=== PATIENT | female | born 1955 | race Caucasian/White ===

== ENCOUNTER 2017-06-26 10:29 | Outpatient (CLI) | payer MEDICAID ==
--- NOTE | 2017-06-28 14:16 | Mammography Report ---
DIGITAL BILATERAL SCREENING MAMMOGRAM: 06/26/2017 COMPARISON: Mammogram 02/16/2015. INDICATION: Screening. TECHNIQUE: Bilateral CC and MLO breast views. FINDINGS: The breast parenchyma is extremely dense, which may limit the sensitivity of mammography. No dominant mass, architectural distortion, or concerning cluster of microcalcifications is seen. There are postoperative changes of the left breast. IMPRESSION: 1. BI-RADS CATEGORY 2-BENIGN FINDINGS. 2. RECOMMEND ANNUAL SCREENING MAMMOGRAM. STANDARD QUALIFYING STATEMENTS: 1. This examination was reviewed with the aid of Computer-Aided Detection (CAD) . 2. A negative or benign imaging report should not delay biopsy if clinically suspicious findings are present. Consider surgical consultation if warranted. More than 5 % of cancers are not identified by imaging. 3. Dense breasts may obscure an underlying neoplasm. TD: 06/28/2017 14:16 ROMAN
== END 2017-06-26 10:30 | disposition home or self-care (01) ==
LOC: DI.N 10:29
PROVIDERS: ATTEND Internal Medicine
DX: Z12.39 Encounter for other screening for malignant neoplasm of breast (principal)
CPT/HCPCS: 77067

== ENCOUNTER 2018-06-11 08:00 | Outpatient (CLI) | payer MEDICAID, OTHER ==
[2018-06-11 19:15] LABS: BASOPHILS % (AUTO) 1.2 %; EOSINOPHILS % (AUTO) 8.9 %; HGB - HEMOGLOBIN 13.6 g/dL (12.0-16.0); MEAN CORPUSCULAR HEMOGLOBIN 34.7 pg (27.0-31.0); MEAN CORPUSCULAR HGB CONC 33.2 g/dL (32.0-36.0); MEAN CORPUSCULAR VOLUME 104.5 fL (81.0-99.0); MEAN PLATELET VOLUME 8.4 fL (7.9-10.8); MONOCYTES % (AUTO) 13.3 %; NEUTROPHILS % (AUTO) 50.6 %; PLT - PLATELET COUNT 248 10^3/uL (130-450); RED BLOOD COUNT 3.91 10^6/uL (4.20-5.40); RED CELL DISTRIBUTION WIDTH 12.4 % (12.0-15.0); WHITE BLOOD COUNT 2.7 x10^3/uL (4.8-10.8)
[2018-06-11 19:22] LABS: ABNORMAL LYMPHS % (MANUAL) 0 %
[2018-06-11 19:42] LABS: BAND NEUTROPHILS % (MANUAL) 1 %; DIFFERENTIAL COMMENT MANUAL DIFFERENTIAL; EOSINOPHILS # (MANUAL) 0.1 10^3/uL (0-0.7); LYMPHOCYTES # (MANUAL) 0.8 10^3/uL (1.5-3.5); LYMPHOCYTES % (MANUAL) 29 %; MONOCYTES # (MANUAL) 0.4 10^3/uL (0.0-1.0); NEUTROPHILS # (MANUAL) 1.4 10^3/uL (1.5-6.6); NEUTROPHILS % (MANUAL) 51 %; PLATELET ESTIMATE, MANUAL NORMAL (130-450,000) (NORMAL); PLATELET MORPHOLOGY NORMAL APPEARANCE (NORMAL); RBC MORPHOLOGY (MULTIPLE) 1+ MACROCYTOSIS (NORMAL)
[2018-06-11 19:44] LABS: ALBUMIN 4.5 g/dL (3.2-5.5); ALBUMIN/GLOBULIN RATIO 1.6 (1.0-2.2); BILIRUBIN,TOTAL 0.6 mg/dL (0.2-1.0); CALCIUM 8.9 mg/dL (8.5-10.3); CREATININE 0.3 mg/dL (0.4-1.0); TOTAL PROTEIN 7.4 g/dL (6.7-8.2)
== END 2018-06-11 23:59 | disposition home or self-care (01) ==
LOC: LAB.N 08:00
PROVIDERS: ATTEND Internal Medicine
DX: M35.9 Systemic involvement of connective tissue, unspecified (principal); I73.00 Raynaud's syndrome without gangrene; E61.1 Iron deficiency
CPT/HCPCS: 36415; 80053; 82550; 83540; 84466; 85025

== ENCOUNTER 2018-07-02 08:00 | Outpatient (CLI) | payer MEDICAID | END 2018-07-02 23:59 | disposition home or self-care (01) | LOC: LAB.R 08:00 | PROVIDERS: ATTEND Internal Medicine | DX: Z12.11 Encounter for screening for malignant neoplasm of colon (principal) | CPT/HCPCS: 82274 ==

== ENCOUNTER 2018-09-10 09:59 | Outpatient (CLI) | payer MEDICARE ==
--- NOTE | 2018-09-10 15:13 | Mammography Report ---
Reason: SCREENING FOR MALIGNANT NEOPLASM OF BREAST Procedure Date: 09/10/2018 Accession Number: [id number] / [id number] Procedure: MGN - Screening Mammo Dig Bilat CPT Code: FULL RESULT: EXAM: Screening Mammo Dig Bilat DATE: 09/10/2018 10:26 AM CLINICAL HISTORY: Routine screening. Nulliparous patient. TECHNIQUE: (B) - Bilateral CC and MLO views were obtained. COMPARISON: 06/26/2017, 02/16/2015, 04/09/2013 and 04/03/2012 PARENCHYMAL PATTERN: (VD) - The breasts demonstrate extremely dense parenchyma bilaterally, limiting the sensitivity of mammography. FINDINGS: No significant interval change. There are no suspicious masses, calcifications, or areas of distortion. IMPRESSION: Negative examination. BI-RADS category 1. RECOMMENDATION: (ANNUAL) - Recommend routine annual screening mammography. BI-RADS CATEGORY: (1) - Negative. STANDARD QUALIFYING STATEMENTS: 1. This examination was not reviewed with the aid of Computer-Aided Detection (CAD). 2. A negative or benign imaging report should not preclude biopsy if clinically suspicious findings are present. 3. Dense breasts may obscure an underlying neoplasm. 4. This examination was reviewed without the aid of 3D breast imaging (tomosynthesis).
== END 2018-09-10 10:00 | disposition home or self-care (01) ==
LOC: DI.N 09:59
PROVIDERS: ATTEND Internal Medicine
DX: Z12.31 Encounter for screening mammogram for malignant neoplasm of breast (principal)
CPT/HCPCS: 77067

== ENCOUNTER 2019-03-10 08:46 | Emergency (ER) | payer MEDICARE ==
[2019-03-10 09:26] LABS: BASOPHILS % (AUTO) 0.2 %; EOSINOPHILS # (AUTO) 0.1 10^3/uL (0.0-0.7); EOSINOPHILS % (AUTO) 1.4 %; HGB - HEMOGLOBIN 13.4 g/dL (12.0-16.0); LYMPHOCYTES # (AUTO) 0.8 10^3/uL (1.5-3.5); LYMPHOCYTES % (AUTO) 18.1 %; MEAN CORPUSCULAR HEMOGLOBIN 34.2 pg (27.0-31.0); MEAN CORPUSCULAR VOLUME 103.6 fL (81.0-99.0); MONOCYTES # (AUTO) 0.6 10^3/uL (0.0-1.0); NEUTROPHILS # (AUTO) 2.7 10^3/uL (1.5-6.6); NEUTROPHILS % (AUTO) 65.1 %; PLT - PLATELET COUNT 206 10^3/uL (130-450); RED BLOOD COUNT 3.92 10^6/uL (4.20-5.40); RED CELL DISTRIBUTION WIDTH 12.4 % (12.0-15.0); WHITE BLOOD COUNT 4.2 x10^3/uL (4.8-10.8)
[2019-03-10 09:55] LABS: ALBUMIN 4.6 g/dL (3.2-5.5); ALBUMIN/GLOBULIN RATIO 1.4 (1.0-2.2); BILIRUBIN,TOTAL 0.5 mg/dL (0.2-1.0); CALCIUM 9.3 mg/dL (8.5-10.3); CREATININE 0.5 mg/dL (0.4-1.0); TOTAL PROTEIN 7.8 g/dL (6.7-8.2)
[2019-03-10] MEDS ORDERED: ONDANSETRON ODT 4 MG TABLET TL STA (10:02)
[2019-03-10] MEDS ORDERED: KETOROLAC 60 MG/2 ML VIAL IM STA (10:02)
--- NOTE | 2019-03-10 10:07 | ED Physician Documentation ---
History of Present Illness - Stated complaint Stated Complaint: TRAVIS/FEVER/VOMITING - Chief complaint Chief Complaint: Abd Pain - History obtained from History obtained from: Patient - History of Present Illness Timing: How many weeks ago (1) Pain level max: 7 Pain level now: 6 - Additonal information Additional information: 63-year-old female presents to the emergency department stating that she has daily headaches. She states that they have worsened over the past week. Took Tylenol without relief. She states that she believes she may have had a fever a few days ago, but none currently. Has had nausea, vomited a few times. No diarrhea or constipation. Worse with movement, sound and lights. Better with rest. No rhinorrhea or congestion. No cough. Has had headaches for many years. Review of Systems Ten Systems: 10 systems reviewed and negative Constitutional: denies: Chills Eyes: denies: Loss of vision, Decreased vision Ears: denies: Ear pain Nose: denies: Rhinorrhea / runny nose, Congestion Cardiac: denies: Chest pain / pressure, Palpitations Respiratory: denies: Dyspnea, Cough GI: denies: Vomiting, Diarrhea Skin: denies: Rash Musculoskeletal: denies: Neck pain, Back pain Neurologic: denies: Focal weakness, Numbness PD PAST MEDICAL HISTORY - Past Medical History Past Medical History: Yes Musculoskeletal: Fibromyalgia Derm: Other Other Past Medical History: raynauds, systemic connective tissue disease - Allergies Allergies/Adverse Reactions: Allergies Allergy/AdvReac Type Severity Reaction Status Date / Time No Known Drug Allergies Allergy Verified 03/10/19 08:59 - Social History Does the pt smoke?: No Smoking Status: Never smoker Does the pt drink ETOH?: No Does the pt have substance abuse?: No - Immunizations Immunizations are current?: Yes Results - Vitals Vitals: Vital Signs - 24 hr 03/10/19 03/10/19 08:57 11:14 Temperature 36.5 C Heart Rate 74 62 Respiratory 18 18 Rate Blood Pressure 129/87 H 133/77 H O2 Saturation 97 97 Oxygen O2 Source Room air - Labs Labs: Laboratory Tests 03/10/19 03/10/19 03/10/19 09:21 09:21 09:57 WBC 4.2 L RBC 3.92 L Hgb 13.4 Hct 40.6 MCV 103.6 H MCH 34.2 H MCHC 33.0 RDW 12.4 Plt Count 206 MPV 9.0 Neut # (Auto) 2.7 Lymph # (Auto) 0.8 L Throckmorton # (Auto) 0.6 Eos # (Auto) 0.1 Baso # (Auto) 0.0 Absolute Nucleated RBC 0.00 Nucleated RBC % 0.0 Sodium 136 Potassium 4.0 Chloride 98 L Carbon Dioxide 30 Anion Gap 8.0 BUN 33 H Creatinine 0.5 Estimated GFR (MDRD) 124 Glucose 102 H Calcium 9.3 Total Bilirubin 0.5 AST 22 ALT 30 Alkaline Phosphatase 63 Total Protein 7.8 Albumin 4.6 Globulin 3.2 Albumin/Globulin Ratio 1.4 Lipase 28 Urine Color YELLOW Urine Clarity HAZY Urine pH 7.0 Ur Specific Ray 1.015 Urine Protein NEGATIVE Urine Glucose (UA) NEGATIVE Urine Ketones NEGATIVE Urine Occult Blood MODERATE H Urine Nitrite NEGATIVE Urine Bilirubin NEGATIVE Urine Urobilinogen 0.2 (NORMAL) Ur Leukocyte Esterase NEGATIVE Urine RBC 6-10 H Urine WBC 0-3 Ur Squamous Epith Cells NONE SEEN Urine Bacteria Rare Ur Microscopic Review INDICATED Urine Culture Comments NOT INDICATED - Rads (name of study) head CT Radiology: Prelim report reviewed, EMP read contemporaneously, See rad report (1. No CT evidence of acute intracranial pathology. 2. Findings suggestive of sinusitis. 3. Mild chronic microvascular ischemic changes and age-related cerebral atrophy. ) PD MEDICAL DECISION MAKING - ED course Complexity details: reviewed results, re-evaluated patient (63-year-old female presents to the emergency department with ongoing headaches. She has daily headaches normally, but states that this 1 is worse. This is been ongoing for a week. No evidence of meningitis, encephalitis. Pain well controlled in the emergency department. She does not have physical symptoms consistent with sinusitis, despite the CT findings suggestive of sinusitis. We will continue supportive care and follow-up with her doctor. No evidence of subarachnoid hemorrhage. Patient counseled regarding signs and symptoms for which I believe and urgent re-evaluation would be necessary. Patient with good understanding of and agreement to plan and is comfortable going home at this time), considered differential, d/w patient Departure - Departure Disposition: 01 Home, Self Care Clinical Impression: Headache Qualifiers: Headache type: unspecified Headache chronicity pattern: acute headache Intractability: not intractable Qualified Code(s): R51 - Headache Condition: Good Instructions: ED Cephalgia Unspecified Follow-Up: Jayjay Ventura MD [Primary Care Provider] - Within 1 week Comments: Your testing does not show any acute abnormalities today. Return if you worsen. Follow-up with your doctor for further care. Discharge Date/Time: 03/10/19 12:38
[2019-03-10 10:09] LABS: BILIRUBIN,URINE NEGATIVE (NEGATIVE); GLUCOSE, URINE (UA) NEGATIVE (NEGATIVE); KETONES,URINE (UA) NEGATIVE (NEGATIVE); LEUKOCYTE ESTERASE, URINE NEGATIVE (NEGATIVE); NITRITE,URINE NEGATIVE (NEGATIVE); OCCULT BLOOD,URINE MODERATE (NEGATIVE); PROTEIN,URINE NEGATIVE (NEGATIVE); UROBILINOGEN,URINE 0.2 (NORMAL) E.U./dL (NORMAL)
[2019-03-10 10:12] LABS: CLARITY,URINE HAZY (CLEAR)
[2019-03-10 10:15] LABS: BACTERIA,URINE Rare /HPF (None Seen); SQUAMOUS EPITHELIAL CELL,UR NONE SEEN (<= Few)
--- NOTE | 2019-03-10 10:56 | CT Report ---
Reason: headache Procedure Date: 03/10/2019 Accession Number: [id number] / [id number] Procedure: CT - HEAD WO CPT Code: Final Report FULL RESULT: EXAM: CT HEAD EXAM DATE: 03/10/2019 10:24 AM. CLINICAL HISTORY: Headache. COMPARISON: None. TECHNIQUE: Multiaxial CT images were obtained from the foramen magnum to the vertex. Reformats: Sagittal and coronal. IV contrast: None. In accordance with CT protocol optimization, one or more of the following dose reduction techniques were utilized for this exam: automated exposure control, adjustment of mA and/or KV based on patient size, or use of iterative reconstructive technique. FINDINGS: Parenchyma: No intraparenchymal hemorrhage. No evidence of mass, midline shift, or CT findings of acute infarction. Mild hypoattenuation in periventricular white matter suggests chronic microvascular ischemic changes. Ramirez-white differentiation is otherwise maintained. Extraaxial Spaces: Normal for age. No subdural or epidural collections identified. Ventricles: Mild prominence of ventricles and sulci compatible with age-related involutional changes. Sinuses and Orbits: The orbits and globes are unremarkable. There is significant opacification of the ethmoid air cells and right frontal sinus. Visualized mastoid air cells are clear. Bones: No evidence of fracture or calvarial defect. Other: None. IMPRESSION: 1. No CT evidence of acute intracranial pathology. 2. Findings suggestive of sinusitis. 3. Mild chronic microvascular ischemic changes and age-related cerebral atrophy. RADIA
[2019-03-10 11:15] VITALS: BP 133/77
[2019-03-10] MEDS ORDERED: oxyCODONE 5 MG TABLET PO STA (11:22)
[2019-03-10] MEDS ORDERED: CYCLOBENZAPRINE 10 MG TABLET PO STA (11:22)
[2019-03-10] MEDS ORDERED: PROMETHAZINE 25 MG/1 ML VIAL IM STA (11:58)
[2019-03-10] MEDS ORDERED: diphenhydrAMINE INJ 50 MG/ML VIAL IM STA (11:58)
--- NOTE | 2019-03-18 22:33 | ED Physician Documentation ---
PD ED PE NORMAL - Vitals Vital signs reviewed: Yes - General General: Alert and oriented X 3, Well developed/nourished, Other (appears uncomfortable.) - HEENT HEENT: Atraumatic, PERRL, Ears normal, Moist mucous membranes, Pharynx benign - Neck Neck: Supple, no meningeal sign, No bony TTP - Cardiac Cardiac: RRR, No murmur, Strong equal pulses - Respiratory Respiratory: No respiratory distress, Clear bilaterally - Abdomen Abdomen: Soft, Non tender, Non distended - Back Back: No spinal TTP - Derm Derm: Warm and dry - Extremities Extremities: Normal ROM s pain - Neuro Neuro: Alert and oriented X 3, 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
== END 2019-03-10 12:38 | disposition home or self-care (01) ==
LOC: ED 08:46
DX: R51 Headache (principal)
CPT/HCPCS: 36415; 70450; 80053; 81001; 83690; 85025; 96372; 99284; A9270; J1200; Q0162; 81003; 87086

== ENCOUNTER 2019-06-17 10:00 | Outpatient (CLI) | payer MEDICARE ==
[2019-06-17 12:05] LABS: BASOPHILS % (AUTO) 0.7 %; EOSINOPHILS # (AUTO) 0.3 10^3/uL (0.0-0.7); HGB - HEMOGLOBIN 12.9 g/dL (12.0-16.0); LYMPHOCYTES # (AUTO) 0.8 10^3/uL (1.5-3.5); LYMPHOCYTES % (AUTO) 26.1 %; MEAN CORPUSCULAR HEMOGLOBIN 34.8 pg (27.0-31.0); MEAN CORPUSCULAR HGB CONC 33.6 g/dL (32.0-36.0); MEAN CORPUSCULAR VOLUME 103.5 fL (81.0-99.0); MEAN PLATELET VOLUME 9.4 fL (7.9-10.8); MONOCYTES # (AUTO) 0.4 10^3/uL (0.0-1.0); NEUTROPHILS # (AUTO) 1.5 10^3/uL (1.5-6.6); NEUTROPHILS % (AUTO) 51.2 %; PLT - PLATELET COUNT 245 10^3/uL (130-450); RED BLOOD COUNT 3.71 10^6/uL (4.20-5.40); RED CELL DISTRIBUTION WIDTH 12.2 % (12.0-15.0)
[2019-06-17 12:31] LABS: % IRON SATURATION 25 % (20-50); ALBUMIN 4.2 g/dL (3.2-5.5); ALBUMIN/GLOBULIN RATIO 1.4 (1.0-2.2); ALKALINE PHOSPHATASE 61 IU/L (42-121); ALT ALANINE AMINOTRANSFERASE 32 IU/L (10-60); AST ASPARTATE AMINOTRANSFERASE 26 IU/L (10-42); BILIRUBIN,TOTAL 0.4 mg/dL (0.2-1.0); BUN - BLOOD UREA NITROGEN 34 mg/dL (6-20); CARBON DIOXIDE - CO2 31 mmol/L (21-32); CHLORIDE 103 mmol/L (101-111); CHOL/HDL RATIO 4.2 (<4.4); CHOLESTEROL 154 mg/dL; CK- CREATINE KINASE 293 IU/L (22-269); CREATININE 0.4 mg/dL (0.4-1.0); GLUCOSE 70 mg/dL (70-100); HDL CHOLESTEROL 37 mg/dL; IRON 96 ug/dL (28-170); LDL CHOLESTEROL,CALCULATED 99 mg/dL; LDL/HDL RATIO 2.7 (<4.4); SODIUM 140 mmol/L (135-145); TOTAL IRON BINDING CAPACITY 386 ug/dL (250-450); TOTAL PROTEIN 7.2 g/dL (6.7-8.2); TRANSFERRIN 276 mg/dL (192-382); VLDL CHOLESTEROL 18 mg/dL
== END 2019-06-17 23:59 | disposition home or self-care (01) ==
LOC: LAB.N 10:00
PROVIDERS: ATTEND Internal Medicine
DX: M35.9 Systemic involvement of connective tissue, unspecified (principal); I73.00 Raynaud's syndrome without gangrene; Z13.6 Encounter for screening for cardiovascular disorders; Z13.1 Encounter for screening for diabetes mellitus; Z13.220 Encounter for screening for lipoid disorders; M81.0 Age-related osteoporosis without current pathological fracture
CPT/HCPCS: 36415; 80053; 80061; 82550; 83540; 83721; 84466; 85025

== ENCOUNTER 2020-06-22 10:06 | Outpatient (CLI) | payer MEDICARE ==
[2020-06-22 10:43] LABS: BASOPHILS % (AUTO) 0.6 %; EOSINOPHILS # (AUTO) 0.3 10^3/uL (0.0-0.7); HCT - HEMATOCRIT 40.1 % (37.0-47.0); LYMPHOCYTES # (AUTO) 0.8 10^3/uL (1.5-3.5); LYMPHOCYTES % (AUTO) 23.7 %; MEAN CORPUSCULAR HEMOGLOBIN 34.5 pg (27.0-31.0); MEAN CORPUSCULAR HGB CONC 32.4 g/dL (32.0-36.0); MEAN CORPUSCULAR VOLUME 106.4 fL (81.0-99.0); MEAN PLATELET VOLUME 9.7 fL (7.9-10.8); MONOCYTES # (AUTO) 0.3 10^3/uL (0.0-1.0); MONOCYTES % (AUTO) 9.3 %; NEUTROPHILS # (AUTO) 1.9 10^3/uL (1.5-6.6); NEUTROPHILS % (AUTO) 57.1 %; PLT - PLATELET COUNT 203 10^3/uL (130-450); RED BLOOD COUNT 3.77 10^6/uL (4.20-5.40); RED CELL DISTRIBUTION WIDTH 12.2 % (12.0-15.0); WHITE BLOOD COUNT 3.3 x10^3/uL (4.8-10.8)
[2020-06-22 10:53] LABS: BILIRUBIN,TOTAL 0.5 mg/dL (0.2-1.0); CALCIUM 9.2 mg/dL (8.5-10.3); CREATININE 0.4 mg/dL (0.4-1.0); POTASSIUM 4.1 mmol/L (3.5-5.0)
[2020-06-22 10:54] LABS: ALBUMIN 4.5 g/dL (3.2-5.5); ALBUMIN/GLOBULIN RATIO 1.6 (1.0-2.2); TOTAL PROTEIN 7.3 g/dL (6.7-8.2)
== END 2020-06-22 10:07 | disposition home or self-care (01) ==
LOC: LAB 10:06
PROVIDERS: ATTEND Internal Medicine
DX: G25.81 Restless legs syndrome (principal); I73.00 Raynaud's syndrome without gangrene; D75.89 Other specified diseases of blood and blood-forming organs; E61.1 Iron deficiency; Z13.1 Encounter for screening for diabetes mellitus; M35.9 Systemic involvement of connective tissue, unspecified
CPT/HCPCS: 36415; 80053; 82550; 83540; 84466; 85025

== ENCOUNTER 2020-06-29 07:00 | Outpatient (CLI) | payer MEDICARE ==
[2020-06-29 11:24] LABS: FECAL OCCULT BLOOD (FIT) NEGATIVE (NEGATIVE)
== END 2020-06-29 23:59 | disposition home or self-care (01) ==
LOC: LAB.R 07:00
PROVIDERS: ATTEND Internal Medicine
DX: Z12.11 Encounter for screening for malignant neoplasm of colon (principal)
CPT/HCPCS: 82274

== ENCOUNTER 2020-09-14 09:45 | Outpatient (CLI) | payer MEDICARE ==
--- NOTE | 2020-09-15 13:30 | Mammography Report ---
BILATERAL DIGITAL SCREENING MAMMOGRAM 3D/2D: 09/14/2020 CLINICAL: Routine screening. Comparison is made to exams dated: 09/10/2018 mammogram, 06/26/2017 mammogram, 02/16/2015 mammogram, mammogram, 04/03/2012 mammogram, and 03/26/2011 mammogram - [facility]. T he tissue of both breasts is extremely dense, which lowers the sensitivity of mammography. No significant masses, calcifications, or other findings are seen in either breast. There has been no significant interval change. IMPRESSION: NEGATIVE There is no mammographic evidence of malignancy. A 1 year screening mammogram is recommended. This exam was interpreted at Station ID: [id number]. NOTE: For mammograms, a report in lay terms will be sent to the patient. Approximately 15% of breast malignancies will not be visualized mammographically. In the management of a palpable breast mass, a negative mammogram must not discourage biopsy of a clinically suspicious lesion. Electronically Signed By: Jair Mazariegos M.D. ddp/penrad:09/14/2020 14:06:31 ACR BI-RADS Category 1: Negative 3341F PARENCHYMAL PATTERN: (VD) - The breast(s) demonstrate(s) extremely dense parenchyma, limiting the sen sitivity of mammography. BI-RADS CATEGORY: (1) - 1 RECOMMENDATION: (ANNUAL) - Recommend routine annual screening mammography. [id number] 1 year screening LATERALITY: (B)
== END 2020-09-14 09:46 | disposition home or self-care (01) ==
LOC: DI 09:45
PROVIDERS: ATTEND Internal Medicine
DX: Z12.31 Encounter for screening mammogram for malignant neoplasm of breast (principal)

== ENCOUNTER 2021-06-28 10:03 | Outpatient (CLI) | payer MEDICARE ==
[2021-06-28 10:16] LABS: HCT - HEMATOCRIT 38.1 % (37.0-47.0); HGB - HEMOGLOBIN 12.6 g/dL (12.0-16.0); MEAN CORPUSCULAR HEMOGLOBIN 34.4 pg (27.0-31.0); MEAN CORPUSCULAR HGB CONC 33.1 g/dL (32.0-36.0); MEAN CORPUSCULAR VOLUME 104.1 fL (81.0-99.0); MEAN PLATELET VOLUME 9.1 fL (7.9-10.8); RED BLOOD COUNT 3.66 10^6/uL (4.20-5.40); WHITE BLOOD COUNT 2.9 x10^3/uL (4.8-10.8)
[2021-06-28 10:35] LABS: ALBUMIN 4.2 g/dL (3.2-5.5); ALBUMIN/GLOBULIN RATIO 1.5 (1.0-2.2); BILIRUBIN,TOTAL 0.2 mg/dL (0.2-1.0); CALCIUM 8.9 mg/dL (8.5-10.3); CREATININE 0.5 mg/dL (0.4-1.0); POTASSIUM 3.8 mmol/L (3.5-5.0)
== END 2021-06-28 10:04 | disposition home or self-care (01) ==
LOC: LAB 10:03
PROVIDERS: ATTEND Internal Medicine
DX: M79.7 Fibromyalgia (principal); M35.9 Systemic involvement of connective tissue, unspecified; E61.1 Iron deficiency; M81.0 Age-related osteoporosis without current pathological fracture
CPT/HCPCS: 36415; 80053; 83540; 84466; 85027

== ENCOUNTER 2021-10-11 10:42 | Outpatient (CLI) | payer MEDICARE ==
--- NOTE | 2021-10-12 09:00 | Mammography Report ---
BILATERAL DIGITAL SCREENING MAMMOGRAM: 10/11/2021 CLINICAL: Routine screening. Comparison is made to exams dated: 09/14/2020 mammogram, 09/10/2018 mammogram, 06/26/2017 mammogram, 02/16/2015 mammogram, 04/09/2013 mammogram, and 04/03/2012 mammogram - [facility]. The tissue of both breasts is extremely dense, which lowers the sensitivity of mammography. No significant masses, calcifications, or other findings are seen in either breast. There has been no significant interval change. IMPRESSION: NEGATIVE There is no mammographic evidence of malignancy. A 1 year screening mammogram is recommended. Based on the Tyrer Cuzick model (a risk assessment model) the patients lifetime risk is 12.5% and he r 10 year risk is 7.0%. According to the ACR, ACS, and NCCN guidelines, an annual breast MRI exam johann ng with mammogram is recommended if the patients lifetime risk is 20% or greater. This exam was interpreted at Station ID: [id number]. NOTE: For mammograms, a report in lay terms will be sent to the patient. Approximately 15% of breast malignancies will not be visualized mammographically. In the management of a palpable breast mass, a negative mammogram must not discourage biopsy of a clinically suspicious lesion. Electronically Signed By: Duc Godinez acr/penrad:10/11/2021 12:42:13 ACR BI-RADS Category 1: Negative 3341F PARENCHYMAL PATTERN: (VD) - The breast(s) demonstrate(s) extremely dense parenchyma, limiting the sen sitivity of mammography. BI-RADS CATEGORY: (1) - 1 RECOMMENDATION: (ANNUAL) - Recommend routine annual screening mammography. [id number] 1 year screening LATERALITY: (B)
== END 2021-10-11 10:43 | disposition home or self-care (01) ==
LOC: DI.N 10:42
PROVIDERS: ATTEND Internal Medicine
DX: Z12.31 Encounter for screening mammogram for malignant neoplasm of breast (principal)

== ENCOUNTER 2022-06-13 10:09 | Outpatient (CLI) | payer MEDICARE ==
[2022-06-13 12:15] LABS: BASOPHILS % (AUTO) 1.1 %; EOSINOPHILS # (AUTO) 0.2 10^3/uL (0.0-0.7); HCT - HEMATOCRIT 40.4 % (37.0-47.0); HGB - HEMOGLOBIN 13.4 g/dL (12.0-16.0); LYMPHOCYTES # (AUTO) 0.7 10^3/uL (1.5-3.5); LYMPHOCYTES % (AUTO) 28.4 %; MEAN CORPUSCULAR HEMOGLOBIN 34.5 pg (27.0-31.0); MEAN CORPUSCULAR HGB CONC 33.2 g/dL (32.0-36.0); MEAN CORPUSCULAR VOLUME 104.1 fL (81.0-99.0); MEAN PLATELET VOLUME 9.7 fL (7.9-10.8); MONOCYTES # (AUTO) 0.3 10^3/uL (0.0-1.0); NEUTROPHILS # (AUTO) 1.4 10^3/uL (1.5-6.6); NEUTROPHILS % (AUTO) 52.1 %; PLT - PLATELET COUNT 239 10^3/uL (130-450); RED BLOOD COUNT 3.88 10^6/uL (4.20-5.40); RED CELL DISTRIBUTION WIDTH 12.2 % (12.0-15.0); WHITE BLOOD COUNT 2.6 x10^3/uL (4.8-10.8)
[2022-06-13 12:16] LABS: SLIDE REVIEW? Indicated
[2022-06-13 12:44] LABS: RBC MORPHOLOGY (MULTIPLE) 1+ ANISOCYTOSIS (NORMAL)
[2022-06-13 12:54] LABS: ALBUMIN 4.3 g/dL (3.2-5.5); ALBUMIN/GLOBULIN RATIO 1.5 (1.0-2.2); ALKALINE PHOSPHATASE 80 IU/L (42-121); ALT ALANINE AMINOTRANSFERASE 42 IU/L (10-60); AST ASPARTATE AMINOTRANSFERASE 29 IU/L (10-42); BILIRUBIN,TOTAL 0.4 mg/dL (0.2-1.0); BUN - BLOOD UREA NITROGEN 26 mg/dL (6-20); CALCIUM 9.5 mg/dL (8.5-10.3); CARBON DIOXIDE - CO2 32 mmol/L (21-32); CHLORIDE 100 mmol/L (101-111); CHOL/HDL RATIO 3.1 (<4.4); CHOLESTEROL 148 mg/dL; CK- CREATINE KINASE 217 IU/L (22-269); CREATININE 0.4 mg/dL (0.4-1.0); CRP - C-REACTIVE PROTEIN < 1.0 mg/dL (0-1.0); FOLATE 19.91 ng/mL (5.90 - >24.8); GFR - MDRD 159 (>89); GLUCOSE 85 mg/dL (70-100); HDL CHOLESTEROL 48 mg/dL; LDL CHOLESTEROL,CALCULATED 81 mg/dL; LDL/HDL RATIO 1.7 (<4.4); POTASSIUM 3.9 mmol/L (3.5-5.0); SODIUM 139 mmol/L (135-145); TOTAL PROTEIN 7.2 g/dL (6.7-8.2); TRIGLYCERIDES 97 mg/dL; VLDL CHOLESTEROL 19 mg/dL
== END 2022-06-13 10:10 | disposition home or self-care (01) ==
LOC: LAB.N 10:09
PROVIDERS: ATTEND Internal Medicine
DX: M35.9 Systemic involvement of connective tissue, unspecified (principal); R71.8 Other abnormality of red blood cells; I73.00 Raynaud's syndrome without gangrene; Z13.6 Encounter for screening for cardiovascular disorders; Z13.220 Encounter for screening for lipoid disorders
CPT/HCPCS: 36415; 80053; 80061; 82550; 82607; 82746; 83721; 85025; 86140

== ENCOUNTER 2022-08-14 08:00 | Outpatient (CLI) | payer MEDICARE ==
[2022-08-15 12:36] LABS: FECAL OCCULT BLOOD (FIT) NEGATIVE (NEGATIVE)
== END 2022-08-14 23:59 | disposition home or self-care (01) ==
LOC: LAB.R 08:00
PROVIDERS: ATTEND Internal Medicine
DX: Z12.11 Encounter for screening for malignant neoplasm of colon (principal)
CPT/HCPCS: 82274

== ENCOUNTER 2023-08-20 08:00 | Outpatient (CLI) | payer MEDICARE ==
[2023-08-22 13:14] LABS: FECAL OCCULT BLOOD (FIT) NEGATIVE (NEGATIVE)
== END 2023-08-20 08:01 | disposition home or self-care (01) ==
LOC: LAB.N 08:00
PROVIDERS: ATTEND Internal Medicine
DX: Z12.11 Encounter for screening for malignant neoplasm of colon (principal)
CPT/HCPCS: 82274

== ENCOUNTER 2023-11-20 10:20 | Outpatient (CLI) | payer MEDICARE ==
--- NOTE | 2023-11-21 07:55 | Mammography Report ---
BILATERAL DIGITAL SCREENING MAMMOGRAM: 11/20/2023 CLINICAL: Routine screening. Comparison is made to exams dated: 10/31/2022 mammogram, 10/11/2021 mammogram, 09/14/2020 mammogram, and 09/10/2018 mammogram - [facility]. Both breasts are extremely dense, which lowers the sensitivity of mammography (category d />75% gland ular tissue). No significant masses, calcifications, or other findings are seen in either breast. There has been no significant interval change. IMPRESSION: NEGATIVE There is no mammographic evidence of malignancy. A 1 year screening mammogram is recommended. Based on the Tyrer Cuzick model (a risk assessment model) the patient's lifetime risk is 11.2% and he r 10 year risk is 7.2%. According to the ACR, ACS, and NCCN guidelines, an annual breast MRI exam johann ng with mammogram is recommended if the patient's lifetime risk is 20% or greater. This exam was interpreted at Station ID: [id number]. NOTE: For mammograms, a report in lay terms will be sent to the patient. Approximately 15% of breast malignancies will not be visualized mammographically. In the management of a palpable breast mass, a negative mammogram must not discourage biopsy of a clinically suspicious lesion. Electronically Signed By: Delmar abad/jarett:11/20/2023 12:47:24 letter sent: No_Letter ACR BI-RADS Category 1: Negative 3341F PARENCHYMAL PATTERN: (VD) - The breast(s) demonstrate(s) extremely dense parenchyma, limiting the sen sitivity of mammography. BI-RADS CATEGORY: (1) - 1 RECOMMENDATION: (ANNUAL) - Recommend routine annual screening mammography. [id number] 1 year screening LATERALITY: (B)
== END 2023-11-20 10:21 | disposition home or self-care (01) ==
LOC: DI.N 10:20
DX: Z12.31 Encounter for screening mammogram for malignant neoplasm of breast (principal)